=== PATIENT | male | born 1965 | race Caucasian/White ===

== ENCOUNTER 2018-04-26 12:52 | Inpatient (IN) | payer OTHER ==
[2018-04-26 14:10] VITALS: BMI 22.6
--- NOTE | 2018-04-26 18:07 | HP ---
COWS - Scale Resting Pulse: 0= [place] 80 or Below Sweatin=Flushed/Facial Moisture Restless Observation: 1= Difficult to Sit Still Pupil Size: 1= Pupils >than Normal Bone or Joint Aches: 2= Severe Diffuse Aches Runny Nose/ Eye Tearin= Runny Nose/Eyes GI Upset > 30mins: 2= Nausea/Diarrhea Tremor Observation: 1= Tremor [place], Not Seen Yawning Observation: 1= 1-2x During Session Anxiety or Irritability: 2=Irritable/Anxious Goose Flesh Skin: 0=Smooth Skin COWS Score: 14 CIWA Score - CIWA Score Nausea/Vomitin Muscle Tremors: 2 Anxiety: 2 Agitation: 1-Slight > Activity Paroxysmal Sweats: 2 Orientation: 2-Disoriented Date<2 days Tacttile Disturbances: 0-None Auditory Disturbances: 0-None Visual Disturbances: 0-None Headache: 1-Very Mild CIWA-Ar Total Score: 12 Admission [facility] Chief Complaint: Heroin/ETOH withdrawal symptoms. Allergies/Adverse Reactions: Allergies Allergy/AdvReac Type Severity Reaction Status Date / Time No Known Allergies Allergy Verified 04/26/18 17:12 History of Present Illness: Patient presents with Heroin/ETOH symptoms. Patient started drinking and sniffing heroin at age 16. Last time he used was last night. Patient sniffs up to 4 bags of heroin and drinks 1/2 pint of liquor daily. Patient takes Xanax 2mg on occasion. Last time he used Xanax is unknown. Denies significant PMH. Denies hx of seizures and overdose. No reports of SI/HI and suicide attempts. First time admission to [facility]. Exam Limitations: No Limitations - Ebola screening Have you traveled outside of the country in the last 21 days: No Have you had contact with anyone from an Ebola affected area: No Have you been sick,other than usual withdrawal symptoms: No Do you have a fever: No - Review of Systems Constitutional: Chills, Night Sweats, Changes in sleep, Unintentional Wgt. Loss EENT: reports: Tearing, Nose Congestion Respiratory: reports: No Symptoms reported. denies: Cough, Productive cough Cardiac: reports: No Symptoms Reported. denies: Chest Pain, Syncope GI: reports: Diarrhea, Nausea, Poor Appetite, Poor Fluid Intake : reports: Frequency. denies: Dysuria, Flank Pain Musculoskeletal: reports: Joint Pain, Muscle Pain Neuro: reports: Tremors, Unsteady Gait. denies: Seizure Endocrine: reports: Unexplained Weight Loss Psychiatric: reports: Anxious, Depressed Patient History - Patient Medical History Hx Anemia: No Hx Asthma: No Hx Chronic Obstructive Pulmonary Disease (COPD): No Hx Cancer: No Hx Cardiac Disorders: No Hx Congestive Heart Failure: No Hx Hypertension: No Hx Hypercholesterolemia: No Hx Pacemaker: No HX Cerebrovascular Accident: No Hx Seizures: No Hx Dementia: No Hx Diabetes: No Hx Gastrointestinal Disorders: No Hx Liver Disease: No Hx Genitourinary Disorders: No Hx Sexually Transmitted Disorders: No Hx Renal Disease (ESRD): No Hx Thyroid Disease: No Hx Human Immunodeficiency Virus (HIV): No Hx Hepatitis C: No Hx Depression: No Hx Suicide Attempt: No Hx Bipolar Disorder: No Hx Schizophrenia: No - Patient Surgical History Past Surgical History: No Anesthesia Reaction: No - PPD History Documented Results: Negative w/o proof - Reproductive History Patient : Yes - Smoking Cessation Smoking history: Current every day smoker Aproximately how many cigarettes per day: 20 Hx Chewing Tobacco Use: No Initiated information on smoking cessation: Yes 'Breaking Loose' booklet given: 04/26/18 - Substance & Tx. History Hx Alcohol Use: Yes Hx Substance Use: Yes Substance Use Type: Alcohol, Heroin, Tranquilizers Hx Substance Use Treatment: Yes - Substances Abused Heroin Route: Inhalation Frequency: Daily Amount used: 12 bags Age of first use: 16 Date of Last Use: 04/23/18 Alprazolam (Xanax) Route: Oral Frequency: Daily Amount used: 1mg Age of first use: 30 Date of Last Use: 04/25/18 Alcohol Route: Oral Frequency: Daily Amount used: Beer - 1 case Age of first use: 20 Date of Last Use: 04/26/18 Family Disease History - Family Disease History Family Disease History: Diabetes: Mother (), Heart Disease: Mother Admission Physical Exam S - Vital Signs Vital Signs: Vital Signs - 24 hr 04/26/18 14:08 Temperature 97.8 F Pulse Rate 67 Respiratory 17 Rate Blood Pressure 120/73 - Physical General Appearance: Yes: No Apparent Distress, Thin, Tremorous, Sweating, Anxious HEENTM: Yes: EOMI, Hearing grossly Normal, Normal ENT Inspection, Normocephalic , MARYCARMEN, Pharynx Normal Respiratory: Yes: Chest Non-Tender, Lungs Clear, Normal Breath Sounds, No Respiratory Distress, No Accessory Muscle Use Neck: Yes: No masses,lesions,Nodules, Supple Breast: Yes: Breast Exam Deferred Cardiology: Yes: Regular Rhythm, Regular Rate, S1, S2 Abdominal: Yes: Normal Bowel Sounds, Non Tender, Soft Genitourinary: Yes: Within Normal Limits Back: Yes: Normal Inspection Musculoskeletal: Yes: full range of Motion, Gait Steady, Back pain, Muscle Pain Extremities: Yes: Normal Inspection, Normal Range of Motion, Non-Tender, Tremors Neurological: Yes: presales engineer II-XII NML intact, Fully Oriented, Alert, Motor Strength 5/5, Normal Response, Depressed Affect Integumentary: Yes: Normal Color, Warm, Moist Lymphatic: Yes: Within Normal Limits - Diagnostic (1) Opioid dependence with withdrawal Current Visit: Yes Status: Acute (2) Alcohol dependence with uncomplicated withdrawal Current Visit: Yes Status: Acute (3) Nicotine dependence Current Visit: Yes Status: Acute Qualifiers: Nicotine product type: cigarettes (4) Benzodiazepine abuse, episodic Current Visit: Yes Status: Suspected Cleared for Admission [facility] - Detox or Rehab [facility] Level of Care: Medically Managed Detox Regimen/Protocol: Methadone/Librium [facility] Breath Alcohol Content Breath Alcohol Content: 0 Urine Drug Screen - Results Drug Screen Negative: No Urine Drug Screen Results: OPI-Opiates
[2018-04-26] MEDS ORDERED: MAGNESIUM CITRATE 300 ML BOTTLE PO PRN (18:13)
[2018-04-26] MEDS ORDERED: MAGNESIUM HYDROX 2400MG/30ML ORAL SUSPENSION 30 ML CUP PO PRN (18:13)
[2018-04-26] MEDS ORDERED: guaiFENesin/D-METHORPHAN HB 10 ML UNIT-DOSE CUPS PO PRN (18:13)
[2018-04-26] MEDS ORDERED: MENTHOL/PHENOL 1 EACH UD MM PRN (18:13)
[2018-04-26] MEDS ORDERED: LOPERAMIDE HCL 2 MG CAPSULE PO PRN (18:13)
[2018-04-26] MEDS ORDERED: hydrOXYzine PAMOATE 50 MG CAPSULE (FP) PO PRN (18:13)
[2018-04-26] MEDS ORDERED: IBUPROFEN 400 MG TABLET (FP) PO PRN (18:13)
[2018-04-26] MEDS ORDERED: P-EPHED 60MG/TRIPROLIDI 2.5MG TABLET PO PRN (18:13)
[2018-04-26] MEDS ORDERED: MAG HYDROX/AL HYDROX/SIMETH 30 ML UNIT-DOSE CUP PO PRN (18:13)
[2018-04-26] MEDS ORDERED: ACETAMINOPHEN 325 MG TABLET (FP) PO PRN (18:13)
[2018-04-26] MEDS ORDERED: NICOTINE POLACRILEX 2 MG GUM BC PRN (18:13)
[2018-04-26] MEDS ORDERED: chlordiazePOXIDE HCL 25 MG CAPSULE PO PRN (18:15)
[2018-04-26] MEDS ORDERED: METHADONE HCL 10 MG TABLET (FOR DETOX USE ONLY) PO ONE ×2 (18:45→23:00)
[2018-04-26] MEDS ORDERED: MELATONIN 5 MG TABLETS PO PRN (22:00)
[2018-04-26] MEDS: chlordiazePOXIDE HCL 25 MG CAPSULE PO SCH (22:02)
[2018-04-26] MEDS: THIAMINE HCL 100 MG TABLET (FP) PO SCH (22:02)
[2018-04-26] MEDS ORDERED: METHADONE HCL 10 MG TABLET (FOR DETOX USE ONLY) ONE (22:04)
[2018-04-27 01:59] LABS: URINE APPEARANCE CLEAR; URINE BILIRUBIN NEGATIVE (<2.0 mg/dL); URINE COLOR YELLOW; URINE GLUCOSE (UA) NEGATIVE (NEGATIVE); URINE KETONE NEGATIVE (NEGATIVE); URINE LEUK ESTERASE NEGATIVE (NEGATIVE); URINE NITRITE NEGATIVE (NEGATIVE); URINE PROTEIN NEGATIVE (NEGATIVE); URINE UROBILINOGEN NEGATIVE mg/dL (0.2-1.0)
[2018-04-27] MEDS: chlordiazePOXIDE HCL 25 MG CAPSULE PO SCH ×4 (05:26→22:36)
[2018-04-27] MEDS ORDERED: METHADONE HCL 10 MG TABLET (FOR DETOX USE ONLY) PO SCH (10:00)
[2018-04-27] MEDS: PRENATAL VITAMINS W/ FOLIC ACID TABLET (FP) PO SCH (10:08)
[2018-04-27] MEDS: NICOTINE 21 MG/24 HOURS TOPICAL PATCH TD SCH (10:08)
[2018-04-27 10:23] LABS: HEMATOCRIT 40.3 % (35.4-49); HEMOGLOBIN 13.1 GM/dL (11.7-16.9); MCH 29.9 pg (25.7-33.7); MCHC 32.6 g/dl (32.0-35.9); MEAN CELL VOLUME 91.9 fl (80-96); MEAN PLT VOLUME 9.4 fl (7.5-11.1); PLATELET COUNT 197 K/MM3 (134-434); RBC 4.38 M/mm3 (4.00-5.60); RDW 13.6 % (11.9-15.9); WHITE BLOOD COUNT 5.8 K/mm3 (4.0-10.0)
[2018-04-27 11:32] LABS: CHLORIDE 106 mmol/L (98-107); POTASSIUM 4.1 mmol/L (3.5-5.1); SODIUM 140 mmol/L (136-145)
[2018-04-27 11:46] LABS: ALBUMIN 3.4 g/dl (3.4-5.0); ALK PHOS 56 U/L (45-117); ANION GAP 6 MMOL/L (8-16); BILIRUBIN,TOTAL 0.4 mg/dL (0.2-1.0); BLOOD UREA NITROGEN 20 mg/dL (7-18); CALCIUM 8.5 mg/dL (8.5-10.1); CO2 28 mmol/L (21-32); CREATININE 0.6 mg/dL (0.7-1.3); GLUCOSE,RANDOM 85 mg/dL (74-106); SGOT/AST 16 U/L (15-37); SGPT/ALT 15 U/L (12-78); TOT PROT 6.6 g/dl (6.4-8.2)
--- NOTE | 2018-04-27 12:30 | EKG ---
Test Reason : Blood Pressure : / mmHG Vent. Rate : 054 BPM Atrial Rate : 054 BPM P-R Int : 154 ms QRS Dur : 098 ms QT Int : 422 ms P-R-T Axes : 063 010 031 degrees QTc Int : 400 ms SINUS BRADYCARDIA OTHERWISE NORMAL ECG NO PREVIOUS ECGS AVAILABLE Confirmed by MEHNAZ AGUILERA, SIS ([id number]) on 04/27/2018 12:30:34 PM Referred By: Confirmed By:SIS DARBY MD
--- NOTE | 2018-04-27 13:14 | PN ---
[facility] CIWA - CIWA Score Nausea/Vomitin-No Nausea/No Vomiting Muscle Tremors: 4-Moderate,w/Arms Extend Anxiety: 4-Mod. Anxious/Guarded Agitation: 4-Moderately Restless Paroxysmal Sweats: 1-Minimal Palms Moist Orientation: 0-Oriented Tacttile Disturbances: 0-None Auditory Disturbances: 0-None Visual Disturbances: 0-None Headache: 0-None Present CIWA-Ar Total Score: 13 S COWS - Scale Resting Pulse: 0= [place] 80 or Below Sweatin= Chills/Flushing Restless Observation: 3= Extraneous Movement Pupil Size: 0= Normal to Room Light Bone or Joint Aches: 4=Acute Joint/Muscle Pain Runny Nose/ Eye Tearin= None GI Upset > 30mins: 0= None Tremor Observation of Outstretched Hands: 1= Tremor [place], Not Seen Yawning Observation: 1= 1-2x During Session Anxiety or Irritability: 2=Irritable/Anxious Goose Flesh Skin: 0=Smooth Skin COWS Score: 12 S Progress Note (SOAP) Subjective: ANXIETY,SWEATS,SLIGHT TREMORS,FATIGUE. Objective: 04/27/18 13:17 Vital Signs 04/27/18 04/27/18 06:23 09:04 Temperature 97.6 F 97.0 F L Pulse Rate 49 L 50 L Respiratory 18 18 Rate Blood Pressure 127/72 107/68 Laboratory Tests 04/26/18 04/27/18 04/27/18 23:30 07:30 07:30 WBC 5.8 RBC 4.38 Hgb 13.1 Hct 40.3 MCV 91.9 MCH 29.9 MCHC 32.6 RDW 13.6 Plt Count 197 MPV 9.4 Sodium Potassium Chloride Carbon Dioxide Anion Gap BUN Creatinine Creat Clearance w eGFR Random Glucose Calcium Total Bilirubin AST ALT Alkaline Phosphatase Total Protein Albumin Urine Color Yellow Urine Appearance Clear Urine pH 6.0 Ur Specific [place] 1.019 Urine Protein Negative Urine Glucose (UA) Negative Urine Ketones Negative Urine Blood Negative Urine Nitrite Negative Urine Bilirubin Negative Urine Urobilinogen Negative Ur Leukocyte Esterase Negative RPR Titer HIV 1&2 Antibody Screen Negative HIV P24 Antigen Negative 04/27/18 04/27/18 07:30 07:30 WBC RBC Hgb Hct MCV MCH MCHC RDW Plt Count MPV Sodium 140 Potassium 4.1 Chloride 106 Carbon Dioxide 28 Anion Gap 6 L BUN 20 H Creatinine 0.6 L Creat Clearance w eGFR > 60 Random Glucose 85 Calcium 8.5 Total Bilirubin 0.4 AST 16 ALT 15 Alkaline Phosphatase 56 Total Protein 6.6 Albumin 3.4 Urine Color Urine Appearance Urine pH Ur Specific [place] Urine Protein Urine Glucose (UA) Urine Ketones Urine Blood Urine Nitrite Urine Bilirubin Urine Urobilinogen Ur Leukocyte Esterase RPR Titer Nonreactive HIV 1&2 Antibody Screen HIV P24 Antigen Assessment: 04/27/18 13:17 WITHDRAWAL SX Plan: CONTINUE DETOX
--- NOTE | 2018-04-27 14:48 | CONSULT ---
[facility] Psychiatric Consult - Data Date of interview: 04/27/18 Admission source: [facility] Identifying data: Patient is a 52 year old male, father of five, domiciled, and is currently unemployed (recently lost his job). This is patient's first admission to detox at [facility]. Pt. admitted to for alcohol and opiate dependence. Substance Abuse History: Substance & Tx. History. Hx Alcohol Use: Yes. Hx Substance Use: Yes. Substance Use Type: Alcohol, Heroin, Tranquilizers. Hx Substance Use Treatment: Yes. - Substances Abused. Heroin. Route: Inhalation. Frequency: Daily. Amount used: 12 bags. Age of first use: 16. Date of Last Use: 04/23/18. Alprazolam (Xanax). Route: Oral. Frequency: Daily. Amount used: 1mg. Age of first use: 30. Date of Last Use: 04/25/18. * * Alcohol. Route: Oral. Frequency: Daily. Amount used: Beer - 1 case. Age of first use: 20. Date of Last Use: 04/26/18 Medical History: denies Psychiatric History: Patient denies h/o psychiatric hospitalization, outpatient care, and suicide attempt. Physical/Sexual Abuse/Trauma History: denies. Mental Status Exam - Mental Status Exam Alert and Oriented to: Time, Place, Person Cognitive Function: Good Patient Appearance: Well Groomed Mood: Euthymic Affect: Mood Congruent Patient Behavior: Appropriate, Cooperative Speech Pattern: Clear, Appropriate Voice Loudness: Normal Thought Process: Intact, Goal Oriented Thought Disorder: Not Present Hallucinations: Denies Suicidal Ideation: Denies Homicidal Ideation: Denies Insight/Judgement: Poor Sleep: Fair Appetite: Fair Muscle strength/Tone: Normal Gait/Station: Normal Psychiatric Findings - Problem List ([place] 1, 2,3) (1) Alcohol dependence with uncomplicated withdrawal Current Visit: Yes Status: Acute (2) Opioid dependence with withdrawal Current Visit: Yes Status: Acute (3) Nicotine dependence Current Visit: Yes Status: Acute Qualifiers: Nicotine product type: cigarettes Substance use status: in withdrawal Qualified Code(s): F17.213 - Nicotine dependence, cigarettes, with withdrawal - Initial Treatment Plan Initial Treatment Plan: Psychoeducation provided. Detoxification in progress. Observation.
[2018-04-27] MEDS: THIAMINE HCL 100 MG TABLET (FP) PO SCH (22:36)
[2018-04-28] MEDS: chlordiazePOXIDE HCL 25 MG CAPSULE PO SCH ×3 (05:42→18:15)
[2018-04-28] MEDS: ONDANSETRON *ODT* 4 MG TABLET SL PRN (09:28)
[2018-04-28] MEDS: NICOTINE 21 MG/24 HOURS TOPICAL PATCH TD SCH (10:03)
[2018-04-28] MEDS: PRENATAL VITAMINS W/ FOLIC ACID TABLET (FP) PO SCH (10:03)
[2018-04-28] MEDS: METHADONE HCL 5 MG TABLET (FOR DETOX USE ONLY) PO SCH (10:03)
--- NOTE | 2018-04-28 13:57 | PN ---
S CIWA - CIWA Score Nausea/Vomitin (N/V) Muscle Tremors: 4-Moderate,w/Arms Extend Anxiety: 4-Mod. Anxious/Guarded Agitation: 4-Moderately Restless Paroxysmal Sweats: 1-Minimal Palms Moist Orientation: 0-Oriented Tacttile Disturbances: 0-None Auditory Disturbances: 0-None Visual Disturbances: 0-None Headache: 0-None Present CIWA-Ar Total Score: 18 [facility] COWS - Scale Resting Pulse: 0= [place] 80 or Below Sweatin= Chills/Flushing Restless Observation: 3= Extraneous Movement Pupil Size: 0= Normal to Room Light Bone or Joint Aches: 4=Acute Joint/Muscle Pain Runny Nose/ Eye Tearin= Runny Nose/Eyes GI Upset > 30mins: 3= Vomiting/Diarrhea Tremor Observation of Outstretched Hands: 2= Slight Tremor Visible Yawning Observation: 0= None Anxiety or Irritability: 2=Irritable/Anxious Goose Flesh Skin: 0=Smooth Skin COWS Score: 17 S Progress Note (SOAP) Subjective: C/O ANXIETY,NAUSEA/VOMITING,MUSCLE CRAMPS,RUNNY NOSE,INTERMITTENT SLEEP. Objective: 04/28/18 13:56 Vital Signs 04/28/18 04/28/18 06:26 10:40 Temperature 96.7 F L 97.6 F Pulse Rate 51 L 57 L Respiratory 18 18 Rate Blood Pressure 121/69 105/65 Laboratory Tests 04/26/18 04/27/18 04/27/18 23:30 07:30 07:30 WBC 5.8 RBC 4.38 Hgb 13.1 Hct 40.3 MCV 91.9 MCH 29.9 MCHC 32.6 RDW 13.6 Plt Count 197 MPV 9.4 Sodium Potassium Chloride Carbon Dioxide Anion Gap BUN Creatinine Creat Clearance w eGFR Random Glucose Calcium Total Bilirubin AST ALT Alkaline Phosphatase Total Protein Albumin Urine Color Yellow Urine Appearance Clear Urine pH 6.0 Ur Specific [place] 1.019 Urine Protein Negative Urine Glucose (UA) Negative Urine Ketones Negative Urine Blood Negative Urine Nitrite Negative Urine Bilirubin Negative Urine Urobilinogen Negative Ur Leukocyte Esterase Negative RPR Titer HIV 1&2 Antibody Screen Negative HIV P24 Antigen Negative 04/27/18 04/27/18 07:30 07:30 WBC RBC Hgb Hct MCV MCH MCHC RDW Plt Count MPV Sodium 140 Potassium 4.1 Chloride 106 Carbon Dioxide 28 Anion Gap 6 L BUN 20 H Creatinine 0.6 L Creat Clearance w eGFR > 60 Random Glucose 85 Calcium 8.5 Total Bilirubin 0.4 AST 16 ALT 15 Alkaline Phosphatase 56 Total Protein 6.6 Albumin 3.4 Urine Color Urine Appearance Urine pH Ur Specific [place] Urine Protein Urine Glucose (UA) Urine Ketones Urine Blood Urine Nitrite Urine Bilirubin Urine Urobilinogen Ur Leukocyte Esterase RPR Titer Nonreactive HIV 1&2 Antibody Screen HIV P24 Antigen Assessment: 04/28/18 13:56 WITHDRAWAL SX Plan: CONTINUE DETOX EDISONFRAN DIRECTED. ACTIFED PRN
[2018-04-28] MEDS: chlordiazePOXIDE 5 MG CAPSULE PO SCH (23:17)
[2018-04-28] MEDS: THIAMINE HCL 100 MG TABLET (FP) PO SCH (23:17)
[2018-04-29] MEDS: chlordiazePOXIDE 5 MG CAPSULE PO SCH ×3 (06:41→17:44)
[2018-04-29] MEDS: ONDANSETRON *ODT* 4 MG TABLET SL PRN (08:32)
[2018-04-29] MEDS: PRENATAL VITAMINS W/ FOLIC ACID TABLET (FP) PO SCH (10:05)
[2018-04-29] MEDS: NICOTINE 21 MG/24 HOURS TOPICAL PATCH TD SCH (10:06)
[2018-04-29] MEDS: METHADONE HCL 5 MG TABLET (FOR DETOX USE ONLY) PO SCH (10:06)
--- NOTE | 2018-04-29 15:21 | PN ---
[facility] Progress Note (SOAP) Subjective: SLIGHT ANXIETY, SWEATS,FATIGUE. Objective: 04/29/18 15:20 Vital Signs 04/29/18 04/29/18 09:10 13:48 Temperature 97 F L 96.9 F L Pulse Rate 53 L 65 Respiratory 20 18 Rate Blood Pressure 132/87 111/75 Laboratory Tests 04/26/18 04/27/18 04/27/18 23:30 07:30 07:30 WBC 5.8 RBC 4.38 Hgb 13.1 Hct 40.3 MCV 91.9 MCH 29.9 MCHC 32.6 RDW 13.6 Plt Count 197 MPV 9.4 Sodium Potassium Chloride Carbon Dioxide Anion Gap BUN Creatinine Creat Clearance w eGFR Random Glucose Calcium Total Bilirubin AST ALT Alkaline Phosphatase Total Protein Albumin Urine Color Yellow Urine Appearance Clear Urine pH 6.0 Ur Specific [place] 1.019 Urine Protein Negative Urine Glucose (UA) Negative Urine Ketones Negative Urine Blood Negative Urine Nitrite Negative Urine Bilirubin Negative Urine Urobilinogen Negative Ur Leukocyte Esterase Negative RPR Titer HIV 1&2 Antibody Screen Negative HIV P24 Antigen Negative 04/27/18 04/27/18 07:30 07:30 WBC RBC Hgb Hct MCV MCH MCHC RDW Plt Count MPV Sodium 140 Potassium 4.1 Chloride 106 Carbon Dioxide 28 Anion Gap 6 L BUN 20 H Creatinine 0.6 L Creat Clearance w eGFR > 60 Random Glucose 85 Calcium 8.5 Total Bilirubin 0.4 AST 16 ALT 15 Alkaline Phosphatase 56 Total Protein 6.6 Albumin 3.4 Urine Color Urine Appearance Urine pH Ur Specific [place] Urine Protein Urine Glucose (UA) Urine Ketones Urine Blood Urine Nitrite Urine Bilirubin Urine Urobilinogen Ur Leukocyte Esterase RPR Titer Nonreactive HIV 1&2 Antibody Screen HIV P24 Antigen Assessment: 04/29/18 15:21 WITHDRAWAL SX Plan: CONTINUE DETOX
[2018-04-29] MEDS: chlordiazePOXIDE HCL 10 MG CAPSULE PO SCH (23:05)
[2018-04-29] MEDS: THIAMINE HCL 100 MG TABLET (FP) PO SCH (23:05)
[2018-04-30] MEDS: chlordiazePOXIDE HCL 10 MG CAPSULE PO SCH (06:02)
[2018-04-30 06:57] VITALS: BP 121/77; PULSE 58; TEMP 97.4
[2018-04-30] MEDS ORDERED: METHADONE HCL 10 MG TABLET (FOR DETOX USE ONLY) PO SCH (10:00)
--- NOTE | 2018-04-30 13:31 | PN ---
[facility] Progress Note (SOAP) Subjective: DETOX COMPLETED. ALERT O X 3. NAD. PT REPORTS PCP AT [facility]. Objective: 04/30/18 13:30 Vital Signs 04/30/18 06:57 Temperature 97.4 F L Pulse Rate 58 L Respiratory 18 Rate Blood Pressure 121/77 Laboratory Tests 04/26/18 04/27/18 04/27/18 23:30 07:30 07:30 WBC 5.8 RBC 4.38 Hgb 13.1 Hct 40.3 MCV 91.9 MCH 29.9 MCHC 32.6 RDW 13.6 Plt Count 197 MPV 9.4 Sodium Potassium Chloride Carbon Dioxide Anion Gap BUN Creatinine Creat Clearance w eGFR Random Glucose Calcium Total Bilirubin AST ALT Alkaline Phosphatase Total Protein Albumin Urine Color Yellow Urine Appearance Clear Urine pH 6.0 Ur Specific [place] 1.019 Urine Protein Negative Urine Glucose (UA) Negative Urine Ketones Negative Urine Blood Negative Urine Nitrite Negative Urine Bilirubin Negative Urine Urobilinogen Negative Ur Leukocyte Esterase Negative RPR Titer HIV 1&2 Antibody Screen Negative HIV P24 Antigen Negative 04/27/18 04/27/18 07:30 07:30 WBC RBC Hgb Hct MCV MCH MCHC RDW Plt Count MPV Sodium 140 Potassium 4.1 Chloride 106 Carbon Dioxide 28 Anion Gap 6 L BUN 20 H Creatinine 0.6 L Creat Clearance w eGFR > 60 Random Glucose 85 Calcium 8.5 Total Bilirubin 0.4 AST 16 ALT 15 Alkaline Phosphatase 56 Total Protein 6.6 Albumin 3.4 Urine Color Urine Appearance Urine pH Ur Specific [place] Urine Protein Urine Glucose (UA) Urine Ketones Urine Blood Urine Nitrite Urine Bilirubin Urine Urobilinogen Ur Leukocyte Esterase RPR Titer Nonreactive HIV 1&2 Antibody Screen HIV P24 Antigen Assessment: 04/30/18 13:30 MEDICALLY STABLE Plan: D/C PT TODAY
--- NOTE | 2018-04-30 13:32 | DS ---
[facility] Detox Discharge Summary Admission Date: 04/26/18 Discharge Date: 04/30/18 - History Present History: Alcohol Dependence, Opioid Dependence, Sedative Dependence Additional Comments: DETOX COMPLETED. FOLLOW UP WITH PCP AT [facility] IN 1-2 WEEKS FOR MEDICAL MANAGEMENT. Pertinent Past History: PLEASE SEE DX BELOW - Physical Exam Results Vital Signs: Vital Signs Temperature 97.4 F L 04/30/18 06:57 Pulse Rate 58 L 04/30/18 06:57 Respiratory Rate 18 04/30/18 06:57 Blood Pressure 121/77 04/30/18 06:57 O2 Sat by Pulse Oximetry (%) Pertinent Admission Physical Exam Findings: WITHDRAWAL SX Laboratory Tests 04/26/18 04/27/18 04/27/18 23:30 07:30 07:30 WBC 5.8 RBC 4.38 Hgb 13.1 Hct 40.3 MCV 91.9 MCH 29.9 MCHC 32.6 RDW 13.6 Plt Count 197 MPV 9.4 Sodium Potassium Chloride Carbon Dioxide Anion Gap BUN Creatinine Creat Clearance w eGFR Random Glucose Calcium Total Bilirubin AST ALT Alkaline Phosphatase Total Protein Albumin Urine Color Yellow Urine Appearance Clear Urine pH 6.0 Ur Specific [place] 1.019 Urine Protein Negative Urine Glucose (UA) Negative Urine Ketones Negative Urine Blood Negative Urine Nitrite Negative Urine Bilirubin Negative Urine Urobilinogen Negative Ur Leukocyte Esterase Negative RPR Titer HIV 1&2 Antibody Screen Negative HIV P24 Antigen Negative 04/27/18 04/27/18 07:30 07:30 WBC RBC Hgb Hct MCV MCH MCHC RDW Plt Count MPV Sodium 140 Potassium 4.1 Chloride 106 Carbon Dioxide 28 Anion Gap 6 L BUN 20 H Creatinine 0.6 L Creat Clearance w eGFR > 60 Random Glucose 85 Calcium 8.5 Total Bilirubin 0.4 AST 16 ALT 15 Alkaline Phosphatase 56 Total Protein 6.6 Albumin 3.4 Urine Color Urine Appearance Urine pH Ur Specific [place] Urine Protein Urine Glucose (UA) Urine Ketones Urine Blood Urine Nitrite Urine Bilirubin Urine Urobilinogen Ur Leukocyte Esterase RPR Titer Nonreactive HIV 1&2 Antibody Screen HIV P24 Antigen - Treatment Hospital Course: Detox Protocol Followed, Detoxed Safely, Responded well, Discharged Condition Good - Medication Discharge Medications: Ambulatory Orders Penicillin V Potassium [Pen Vee K -] 500 mg PO DAILY 04/26/18 - Diagnosis (1) Alcohol dependence with uncomplicated withdrawal Status: Acute (2) Nicotine dependence Status: Acute Qualifiers: Nicotine product type: cigarettes Substance use status: in withdrawal Qualified Code(s): F17.213 - Nicotine dependence, cigarettes, with withdrawal (3) Opioid dependence with withdrawal Status: Acute (4) Sedative, hypnotic or anxiolytic dependence with withdrawal, uncomplicated Status: Acute - AMA Did Patient Leave Against Medical Advice: No
[2018-05-01] MEDS ORDERED: METHADONE HCL 5 MG TABLET (FOR DETOX USE ONLY) PO SCH (06:00)
== END 2018-04-30 09:05 | disposition home or self-care (01) | DRG 773 ==
LOC: YASAS 12:52 → Y3N 17:53
PROC: HZ2ZZZZ Detoxification Services for Substance Abuse Treatment (ICD-10-PCS; principal; 2018-04-26)
DX: F11.23 Opioid dependence with withdrawal (principal); F10.230 Alcohol dependence with withdrawal, uncomplicated; F13.230 Sedative, hypnotic or anxiolytic dependence with withdrawal, uncomplicated; F17.213 Nicotine dependence, cigarettes, with withdrawal
CPT/HCPCS: 36415; 71046-TC-FY; 80053; 81003; 85027; 86593; 87389; 93005; 93010; Q0162

== ENCOUNTER 2018-07-25 11:34 | Inpatient (IN) | payer OTHER ==
[2018-07-25 13:06] VITALS: BMI 23.1
--- NOTE | 2018-07-25 15:14 | HP ---
COWS - Scale Resting Pulse: 0= [place] 80 or Below Sweatin= Chills/Flushing Restless Observation: 1= Difficult to Sit Still Pupil Size: 1= Pupils >than Normal Bone or Joint Aches: 2= Severe Diffuse Aches Runny Nose/ Eye Tearin= Runny Nose/Eyes GI Upset > 30mins: 2= Nausea/Diarrhea Tremor Observation: 2= Slight Tremor Visible Yawning Observation: 1= 1-2x During Session Anxiety or Irritability: 2=Irritable/Anxious Goose Flesh Skin: 0=Smooth Skin COWS Score: 14 CIWA Score Nausea/Vomitin Muscle Tremors: 2 Anxiety: 2 Agitation: 2 Paroxysmal Sweats: 1-Minimal Palms Moist Orientation: 0-Oriented Tacttile Disturbances: 1-Very Mild Itch/Numbness Auditory Disturbances: 1-Very Mild Visual Disturbances: 0-None Headache: 2-Mild CIWA-Ar Total Score: 13 - Admission Criteria [facility]ASAS Guidelines: Admission for Medically Managed Detox: Requires at least one of the followin. CIWA greater than 12 2. Seizures within the past 24 hours 3. Delirium tremens within the past 24 hours 4. Hallucinations within the past 24 hours 5. Acute intervention needed for co occurring medical disorder 6. Acute intervention needed for co occurring psychiatric disorder 7. Severe withdrawal that cannot be handled at a lower level of care (continued vomiting, continued diarrhea, abnormal vital signs) requiring intravenous medication and/or fluids 8. Patient presents the following: CIWA greater than 12 Admission Criteria Met: Admission criteria met Admission ROS [facility] - [facility] Chief Complaint: i need help to stop using heroin and alcohol Allergies/Adverse Reactions: Allergies Allergy/AdvReac Type Severity Reaction Status Date / Time No Known Allergies Allergy Verified 07/25/18 15:01 History of Present Illness: this 53 years old mal with heroin and alcohol dependence,seking detox, withdrawal symptom,last detox [facility] from 04/26/18 to 04/30/18 weight loss callus both feet nicotine dependence longest period of sobriety 2 years positive ppd plan for rehab after detox Exam Limitations: No Limitations - Ebola screening Have you traveled outside of the country in the last 21 days: No Have you had contact with anyone from an Ebola affected area: No Have you been sick,other than usual withdrawal symptoms: No Do you have a fever: No - Review of Systems Constitutional: Loss of Appetite, Malaise, Night Sweats, Changes in sleep, Weakness, Unintentional Wgt. Loss EENT: reports: Nose Congestion Respiratory: reports: No Symptoms reported Cardiac: reports: No Symptoms Reported GI: reports: Nausea, Poor Appetite, Abdominal cramping : reports: No Symptoms Reported Musculoskeletal: reports: Back Pain, Muscle Pain Integumentary: reports: Dryness Endocrine: reports: No Symptoms Reported Hematology: reports: No Symptoms Reported Psychiatric: reports: No Sypmtoms Reported, Mood/Affect Appropiate, Orientated x3 Patient History - Patient Medical History Hx Anemia: No Hx Asthma: No Hx Chronic Obstructive Pulmonary Disease (COPD): No Hx Cancer: No Hx Cardiac Disorders: No Hx Congestive Heart Failure: No Hx Hypertension: No Hx Hypercholesterolemia: No Hx Pacemaker: No HX Cerebrovascular Accident: No Hx Seizures: No Hx Dementia: No Hx Diabetes: No Hx Gastrointestinal Disorders: No Hx Liver Disease: No Hx Genitourinary Disorders: No Hx Sexually Transmitted Disorders: No Hx Renal Disease (ESRD): No Hx Thyroid Disease: No Hx Human Immunodeficiency Virus (HIV): No (last 05/10 negative ) Hx Hepatitis C: No Hx Depression: No Hx Suicide Attempt: No Hx Bipolar Disorder: No Hx Schizophrenia: No Other Medical History: no suicidal,no homicidal - Patient Surgical History Past Surgical History: No Anesthesia Reaction: No - PPD History Previous Implant?: Yes Documented Results: Positive w/proof Implanted On Prior [facility] Admission?: No PPD to be Administered?: No - Smoking Cessation Smoking history: Current every day smoker Aproximately how many cigarettes per day: 20 Hx Chewing Tobacco Use: No Initiated information on smoking cessation: Yes 'Breaking Loose' booklet given: 07/25/18 - Substance & Tx. History Hx Alcohol Use: Yes Hx Substance Use: Yes Substance Use Type: Heroin Hx Substance Use Treatment: Yes ([facility] 04/26/18 to 04/30/18) - Substances Abused Heroin Route: Inhalation Frequency: Daily Amount used: 7 bags Age of first use: 16 Date of Last Use: 07/25/18 Alcohol Route: Oral Frequency: Daily Amount used: 1 pint vodka/ 2-3 beers Age of first use: 19 Date of Last Use: 07/24/18 Family Disease History - Family Disease History Family Disease History: Diabetes: Mother (), Heart Disease: Mother Admission Physical Exam [facility] - Vital Signs Vital Signs: Vital Signs - 24 hr 07/25/18 13:03 Temperature 98.6 F Pulse Rate 61 Respiratory 18 Rate Blood Pressure 122/68 - Physical General Appearance: Yes: Moderate Distress, Tremorous, Irritable, Sweating, Anxious HEENTM: Yes: Normal ENT Inspection, MARYCARMEN, Pharynx Normal Respiratory: Yes: Lungs Clear, Normal Breath Sounds, No Respiratory Distress Neck: Yes: Within Normal Limits, Supple, Trachea in good position Breast: Yes: Within Normal Limits Cardiology: Yes: Within Normal Limits, Regular Rhythm, Regular Rate, S1, S2 Abdominal: Yes: Within Normal Limits, Normal Bowel Sounds, Non Tender, Soft Genitourinary: Yes: Within Normal Limits Back: Yes: Muscle Spasm Musculoskeletal: Yes: full range of Motion, Back pain, Muscle Pain Extremities: Yes: Within Normal Limits, Normal Range of Motion, Tremors Neurological: Yes: Within Normal Limits, Alert, Motor Strength 5/5 Integumentary: Yes: Dry Lymphatic: Yes: Within Normal Limits - Diagnostic (1) Opioid dependence with withdrawal Current Visit: No Status: Acute (2) Alcohol dependence with uncomplicated withdrawal Current Visit: No Status: Acute (3) Nicotine dependence Current Visit: No Status: Acute Qualifiers: Nicotine product type: cigarettes Substance use status: in withdrawal Qualified Code(s): F17.213 - Nicotine dependence, cigarettes, with withdrawal (4) Weight loss Current Visit: Yes Status: Acute (5) Positive PPD Current Visit: Yes Status: Acute Cleared for Admission [facility] - Detox or Rehab [facility] Level of Care: Medically Managed Detox Regimen/Protocol: Methadone/Librium [facility] Breath Alcohol Content Breath Alcohol Content: 0 Urine Drug Screen - Results Drug Screen Negative: No Urine Drug Screen Results: OPI-Opiates
[2018-07-25] MEDS ORDERED: chlordiazePOXIDE HCL 25 MG CAPSULE PO PRN (15:21)
[2018-07-25] MEDS ORDERED: MAG HYDROX/AL HYDROX/SIMETH 30 ML UNIT-DOSE CUP PO PRN (15:22)
[2018-07-25] MEDS ORDERED: MAGNESIUM CITRATE 300 ML BOTTLE PO PRN (15:22)
[2018-07-25] MEDS ORDERED: hydrOXYzine PAMOATE 25 MG CAPSULE (FP) PO PRN (15:22)
[2018-07-25] MEDS ORDERED: guaiFENesin/D-METHORPHAN HB 10 ML UNIT-DOSE CUPS PO PRN (15:22)
[2018-07-25] MEDS ORDERED: MENTHOL/PHENOL 1 EACH UD MM PRN (15:22)
[2018-07-25] MEDS ORDERED: MAGNESIUM HYDROX 2400MG/30ML ORAL SUSPENSION 30 ML CUP PO PRN (15:22)
[2018-07-25] MEDS ORDERED: LOPERAMIDE HCL 2 MG CAPSULE PO PRN (15:22)
[2018-07-25] MEDS ORDERED: IBUPROFEN 400 MG TABLET (FP) PO PRN (15:22)
[2018-07-25] MEDS ORDERED: ACETAMINOPHEN 325 MG TABLET (FP) PO PRN (15:22)
[2018-07-25] MEDS ORDERED: METHADONE HCL 10 MG TABLET (FOR DETOX USE ONLY) PO ONE ×2 (15:45→23:00)
[2018-07-25] MEDS: chlordiazePOXIDE HCL 25 MG CAPSULE PO SCH ×2 (16:32→22:41)
[2018-07-25] MEDS: NICOTINE 21 MG/24 HOURS TOPICAL PATCH TD SCH (16:49)
[2018-07-25] MEDS ORDERED: MELATONIN 5 MG TABLETS PO PRN (22:00)
[2018-07-25] MEDS: THIAMINE HCL 100 MG TABLET (FP) PO SCH (22:40)
[2018-07-26] MEDS: chlordiazePOXIDE HCL 25 MG CAPSULE PO SCH ×4 (05:22→22:30)
[2018-07-26] MEDS: P-EPHED 60MG/TRIPROLIDI 2.5MG TABLET PO PRN (05:25)
[2018-07-26 09:50] LABS: HEMATOCRIT 40.1 % (35.4-49); HEMOGLOBIN 12.8 GM/dL (11.7-16.9); MCH 29.2 pg (25.7-33.7); MCHC 31.8 g/dl (32.0-35.9); MEAN CELL VOLUME 91.9 fl (80-96); MEAN PLT VOLUME 9.3 fl (7.5-11.1); PLATELET COUNT 195 K/MM3 (134-434); RBC 4.37 M/mm3 (4.00-5.60); RDW 13.4 % (11.9-15.9); WHITE BLOOD COUNT 5.6 K/mm3 (4.0-10.0)
[2018-07-26] MEDS ORDERED: METHADONE HCL 10 MG TABLET (FOR DETOX USE ONLY) PO SCH (10:00)
[2018-07-26] MEDS: NICOTINE 21 MG/24 HOURS TOPICAL PATCH TD SCH (10:23)
[2018-07-26] MEDS: PRENATAL VITAMINS W/ FOLIC ACID TABLET (FP) PO SCH (10:23)
[2018-07-26 10:26] LABS: ALBUMIN 3.4 g/dl (3.4-5.0); ALK PHOS 58 U/L (45-117); ANION GAP 8 MMOL/L (8-16); BILIRUBIN,TOTAL 0.2 mg/dL (0.2-1); BLOOD UREA NITROGEN 17 mg/dL (7-18); CHLORIDE 104 mmol/L (98-107); CO2 28 mmol/L (21-32); CREATININE 0.6 mg/dL (0.55-1.3); GLUCOSE,RANDOM 84 mg/dL (74-106); SGOT/AST 11 U/L (15-37); SGPT/ALT 15 U/L (13-61); SODIUM 139 mmol/L (136-145); TOT PROT 6.3 g/dl (6.4-8.2)
[2018-07-26] MEDS ORDERED: FLU VACCINE QUAD 60 MCG/0.5 ML (MDV 18-19) IM ONE (12:00)
--- NOTE | 2018-07-26 12:56 | PN ---
[facility] CIWA - CIWA Score Nausea/Vomitin-Mild Nausea/No Vomiting Muscle Tremors: 2 Anxiety: 1-Mildly Anxious Agitation: 1-Slight > Activity Paroxysmal Sweats: 1-Minimal Palms Moist Orientation: 1-Uncertain about Date Tacttile Disturbances: 0-None Auditory Disturbances: 0-None Visual Disturbances: 0-None Headache: 0-None Present CIWA-Ar Total Score: 7 [facility] COWS - Scale Resting Pulse: 0= [place] 80 or Below Sweatin= Chills/Flushing Restless Observation: 0= Sits Still Pupil Size: 0= Normal to Room Light Bone or Joint Aches: 1= Mild Discomfort Runny Nose/ Eye Tearin= Nasal Congestion GI Upset > 30mins: 1= Stomach Cramp Tremor Observation of Outstretched Hands: 1= Tremor Topping, Not Seen Yawning Observation: 0= None Anxiety or Irritability: 1=Feels Anxious/Irritable Goose Flesh Skin: 0=Smooth Skin COWS Score: 6 S Progress Note (SOAP) Subjective: pt states feeling fine- Day #2, on alcohol and opioid withdrawal protocols O: Vital Signs - 24 hr 07/25/18 07/25/18 07/25/18 13:03 18:00 21:44 Temperature 98.6 F 97.1 F L 97.1 F L Pulse Rate 61 61 55 L Respiratory 18 16 18 Rate Blood Pressure 122/68 107/64 91/56 L 07/26/18 07/26/18 07/26/18 00:30 03:30 06:18 Temperature 96.8 F L Pulse Rate 52 L Respiratory 18 18 18 Rate Blood Pressure 111/65 07/26/18 10:52 Temperature 98.6 F Pulse Rate 74 Respiratory 18 Rate Blood Pressure 112/72 Laboratory Tests 07/26/18 07/26/18 07/26/18 07:00 07:00 07:00 WBC 5.6 RBC 4.37 Hgb 12.8 Hct 40.1 MCV 91.9 MCH 29.2 MCHC 31.8 L RDW 13.4 Plt Count 195 MPV 9.3 Sodium 139 Potassium 4.0 Chloride 104 Carbon Dioxide 28 Anion Gap 8 BUN 17 Creatinine 0.6 Creat Clearance w eGFR > 60 Random Glucose 84 Calcium 8.0 L Total Bilirubin 0.2 AST 11 L ALT 15 Alkaline Phosphatase 58 Total Protein 6.3 L Albumin 3.4 RPR Titer Nonreactive a/p: alcohol detox protocol, opioid detox protocol low calcium- ca carb supplement
[2018-07-26] MEDS: THIAMINE HCL 100 MG TABLET (FP) PO SCH (22:30)
[2018-07-26] MEDS: CALCIUM CARBONATE 650 MG TABLET PO SCH (22:30)
[2018-07-27] MEDS: chlordiazePOXIDE HCL 25 MG CAPSULE PO SCH ×2 (05:16→10:37)
[2018-07-27] MEDS: PRENATAL VITAMINS W/ FOLIC ACID TABLET (FP) PO SCH (10:37)
[2018-07-27] MEDS: METHADONE HCL 5 MG TABLET (FOR DETOX USE ONLY) PO SCH (10:37)
[2018-07-27] MEDS: NICOTINE 21 MG/24 HOURS TOPICAL PATCH TD SCH (10:37)
[2018-07-27] MEDS: CALCIUM CARBONATE 650 MG TABLET PO SCH ×2 (10:38→22:39)
[2018-07-27] MEDS: P-EPHED 60MG/TRIPROLIDI 2.5MG TABLET PO PRN (10:42)
--- NOTE | 2018-07-27 15:18 | PN ---
[facility] CIWA - CIWA Score Nausea/Vomitin-Mild Nausea/No Vomiting Muscle Tremors: 3 Anxiety: 3 Agitation: 3 Paroxysmal Sweats: 2 Orientation: 0-Oriented Tacttile Disturbances: 0-None Auditory Disturbances: 0-None Visual Disturbances: 0-None Headache: 0-None Present CIWA-Ar Total Score: 12 S COWS - Scale Resting Pulse: 0= [place] 80 or Below Sweatin= Chills/Flushing Restless Observation: 3= Extraneous Movement Pupil Size: 0= Normal to Room Light Bone or Joint Aches: 1= Mild Discomfort Runny Nose/ Eye Tearin= None GI Upset > 30mins: 1= Stomach Cramp Tremor Observation of Outstretched Hands: 2= Slight Tremor Visible Yawning Observation: 0= None Anxiety or Irritability: 2=Irritable/Anxious Goose Flesh Skin: 0=Smooth Skin COWS Score: 10 [facility] Progress Note (SOAP) Subjective: Sweating, feeling dizzy, chills, tremor, nausea, diarrhea (x2), interrupted sleep Objective: 07/27/18 15:17 Last Vital Signs Temp Pulse Resp BP Pulse Ox 97.9 F 55 L 18 107/66 07/27/18 13:50 07/27/18 13:50 07/27/18 13:50 07/27/18 13:50 Laboratory Tests 07/26/18 07/26/18 07/26/18 07:00 07:00 07:00 WBC 5.6 RBC 4.37 Hgb 12.8 Hct 40.1 MCV 91.9 MCH 29.2 MCHC 31.8 L RDW 13.4 Plt Count 195 MPV 9.3 Sodium 139 Potassium 4.0 Chloride 104 Carbon Dioxide 28 Anion Gap 8 BUN 17 Creatinine 0.6 Creat Clearance w eGFR > 60 Random Glucose 84 Calcium 8.0 L Total Bilirubin 0.2 AST 11 L ALT 15 Alkaline Phosphatase 58 Total Protein 6.3 L Albumin 3.4 RPR Titer Nonreactive Labs reviewed Assessment: 07/27/18 15:17 Withdrawal symptoms Plan: Continue detox Encouraged PO water intake
[2018-07-27] MEDS: chlordiazePOXIDE 5 MG CAPSULE PO SCH ×2 (18:10→22:40)
[2018-07-27] MEDS: THIAMINE HCL 100 MG TABLET (FP) PO SCH (22:39)
[2018-07-28] MEDS: chlordiazePOXIDE 5 MG CAPSULE PO SCH ×2 (06:26→10:48)
[2018-07-28] MEDS: CALCIUM CARBONATE 650 MG TABLET PO SCH ×2 (10:48→23:09)
[2018-07-28] MEDS: PRENATAL VITAMINS W/ FOLIC ACID TABLET (FP) PO SCH (10:48)
[2018-07-28] MEDS: NICOTINE 21 MG/24 HOURS TOPICAL PATCH TD SCH (10:48)
[2018-07-28] MEDS: METHADONE HCL 5 MG TABLET (FOR DETOX USE ONLY) PO SCH (10:50)
--- NOTE | 2018-07-28 14:44 | PN ---
S Progress Note (SOAP) Subjective: Interrupted sleep, anxious Objective: 07/28/18 14:41 Last Vital Signs Temp Pulse Resp BP Pulse Ox 97.2 F L 55 L 18 113/67 07/28/18 06:02 07/28/18 06:02 07/28/18 06:30 07/28/18 06:02 Laboratory Tests 07/26/18 07/26/18 07/26/18 07:00 07:00 07:00 WBC 5.6 RBC 4.37 Hgb 12.8 Hct 40.1 MCV 91.9 MCH 29.2 MCHC 31.8 L RDW 13.4 Plt Count 195 MPV 9.3 Sodium 139 Potassium 4.0 Chloride 104 Carbon Dioxide 28 Anion Gap 8 BUN 17 Creatinine 0.6 Creat Clearance w eGFR > 60 Random Glucose 84 Calcium 8.0 L Total Bilirubin 0.2 AST 11 L ALT 15 Alkaline Phosphatase 58 Total Protein 6.3 L Albumin 3.4 RPR Titer Nonreactive Labs reviewed Assessment: 07/28/18 14:41 Withdrawal symptoms Plan: Continue detox Encouraged PO water intake
[2018-07-28] MEDS: chlordiazePOXIDE HCL 10 MG CAPSULE PO SCH ×2 (17:38→23:09)
[2018-07-28] MEDS: THIAMINE HCL 100 MG TABLET (FP) PO SCH (23:09)
[2018-07-29] MEDS: chlordiazePOXIDE HCL 10 MG CAPSULE PO SCH ×2 (06:51→10:11)
[2018-07-29] MEDS ORDERED: METHADONE HCL 10 MG TABLET (FOR DETOX USE ONLY) PO SCH (10:00)
[2018-07-29] MEDS: PRENATAL VITAMINS W/ FOLIC ACID TABLET (FP) PO SCH (10:11)
[2018-07-29] MEDS: NICOTINE 21 MG/24 HOURS TOPICAL PATCH TD SCH (10:11)
[2018-07-29] MEDS: CALCIUM CARBONATE 650 MG TABLET PO SCH ×2 (10:11→22:45)
--- NOTE | 2018-07-29 14:57 | PN ---
[facility] Progress Note (SOAP) Subjective: Denies any complaints. Patient is anxious Objective: 07/29/18 14:54 Last Vital Signs Temp Pulse Resp BP Pulse Ox 96.4 F L 97 H 18 104/72 07/29/18 09:30 07/29/18 09:30 07/29/18 09:30 07/29/18 09:30 Laboratory Tests 07/26/18 07/26/18 07/26/18 07:00 07:00 07:00 WBC 5.6 RBC 4.37 Hgb 12.8 Hct 40.1 MCV 91.9 MCH 29.2 MCHC 31.8 L RDW 13.4 Plt Count 195 MPV 9.3 Sodium 139 Potassium 4.0 Chloride 104 Carbon Dioxide 28 Anion Gap 8 BUN 17 Creatinine 0.6 Creat Clearance w eGFR > 60 Random Glucose 84 Calcium 8.0 L Total Bilirubin 0.2 AST 11 L ALT 15 Alkaline Phosphatase 58 Total Protein 6.3 L Albumin 3.4 RPR Titer Nonreactive Labs reviewed Assessment: 07/29/18 14:54 Withdrawal symptoms Plan: Continue detox Encouraged PO water intake Patient scheduled for discharge tomorrow at 7am (patient requested to leave at 7am). As per patient, his friend will be picking him up from here tomorrow and take him to NA meeting.
[2018-07-29] MEDS: THIAMINE HCL 100 MG TABLET (FP) PO SCH (22:45)
[2018-07-30] MEDS ORDERED: METHADONE HCL 5 MG TABLET (FOR DETOX USE ONLY) PO SCH (06:00)
[2018-07-30 06:15] VITALS: BP 109/64; PULSE 59; TEMP 97.7
--- NOTE | 2018-07-30 11:29 | DS ---
[facility] Detox Discharge Summary Admission Date: 07/25/18 Discharge Date: 07/30/18 - History Present History: Alcohol Dependence, Opioid Dependence Pertinent Past History: PLEASE SEE DX BELOW - Physical Exam Results Vital Signs: Vital Signs Temperature 97.7 F 07/30/18 06:15 Pulse Rate 59 L 07/30/18 06:15 Respiratory Rate 18 07/30/18 06:15 Blood Pressure 109/64 07/30/18 06:15 O2 Sat by Pulse Oximetry (%) Pertinent Admission Physical Exam Findings: WITHDRAWAL SX Laboratory Tests 07/26/18 07/26/18 07/26/18 07:00 07:00 07:00 WBC 5.6 RBC 4.37 Hgb 12.8 Hct 40.1 MCV 91.9 MCH 29.2 MCHC 31.8 L RDW 13.4 Plt Count 195 MPV 9.3 Sodium 139 Potassium 4.0 Chloride 104 Carbon Dioxide 28 Anion Gap 8 BUN 17 Creatinine 0.6 Creat Clearance w eGFR > 60 Random Glucose 84 Calcium 8.0 L Total Bilirubin 0.2 AST 11 L ALT 15 Alkaline Phosphatase 58 Total Protein 6.3 L Albumin 3.4 RPR Titer Nonreactive - Treatment Hospital Course: Detox Protocol Followed, Detoxed Safely, Responded well, Discharged Condition Good - Medication Discharge Medications: Ambulatory Orders NK [No Known Home Medication] 07/25/18 - Diagnosis (1) Alcohol dependence with uncomplicated withdrawal Status: Acute (2) Nicotine dependence Status: Acute Qualifiers: Nicotine product type: cigarettes Substance use status: in withdrawal Qualified Code(s): F17.213 - Nicotine dependence, cigarettes, with withdrawal (3) Opioid dependence with withdrawal Status: Acute (4) Weight loss Status: Acute - AMA Did Patient Leave Against Medical Advice: No
--- NOTE | 2018-07-30 11:29 | PN ---
S Progress Note Note: PT DISCHARGED EARLIER TODAY. PT WAS NOT SEEN BY THIS PROVIDER.
== END 2018-07-30 06:30 | disposition home or self-care (01) | DRG 773 ==
LOC: YASAS 11:34 → Y3N 15:15
PROC: HZ2ZZZZ Detoxification Services for Substance Abuse Treatment (ICD-10-PCS; principal; 2018-07-25)
DX: F11.23 Opioid dependence with withdrawal (principal); F10.230 Alcohol dependence with withdrawal, uncomplicated; F17.213 Nicotine dependence, cigarettes, with withdrawal; E83.51 Hypocalcemia; R63.4 Abnormal weight loss; Z68.23 Body mass index [BMI] 23.0-23.9, adult; R76.11 Nonspecific reaction to tuberculin skin test without active tuberculosis
CPT/HCPCS: 36415; 80053; 85027; 86593